=== PATIENT | female | born 1955 | race Two or more races ===

== ENCOUNTER 2017-02-25 11:08 | Emergency (ER) | payer MEDICARE, MEDICAID ==
[~2017-02-25] VITALS: Ht 162.6 cm; Wt 90.4 kg
[2017-02-25] MEDS ORDERED: FAMOTIDINE 20 MG TABLET PO ONE (12:00)
[2017-02-25] MEDS ORDERED: DIPHENHYDRAMINE 50 MG/ML, 1ML IM ONE ×2 (12:00→13:00)
[2017-02-25] MEDS ORDERED: DIPHENHYDRAMINE 50 MG/ML, 1ML ONE (12:45)
[2017-02-25] MEDS ORDERED: FAMOTIDINE 20 MG TABLET ONE (12:46)
[2017-02-25] MEDS ORDERED: ATOR80TA75 PO (13:06)
[2017-02-25] MEDS ORDERED: FLUO20TA25 PO (13:06)
[2017-02-25] MEDS ORDERED: ASPI-496 PO (13:06)
[2017-02-25] MEDS ORDERED: QUIN40TA7 PO (13:06)
[2017-02-25] MEDS ORDERED: INSU100I17 SQ (13:06)
[2017-02-25 14:15] VITALS: BP 135/70
== END 2017-02-25 14:21 | disposition home or self-care (01) ==
LOC: ED 12:11
DX: T78.1XXA Other adverse food reactions, not elsewhere classified, initial encounter (principal); X58.XXXA Exposure to other specified factors, initial encounter
CPT/HCPCS: 96372; 99283; J1200; J7512

== ENCOUNTER 2019-12-13 10:45 | Inpatient (IN) | payer MEDICARE, MEDICAID ==
[~2019-12-13] VITALS: Ht 149.9 cm; Wt 92.1 kg
[~2019-12-13 10:45] MED LIST: ASPI-496 PO; ATOR-2 PO; FLUO20TA25 PO; INSU100I17 SQ; QUIN40TA15 PO
--- NOTE | 2019-12-13 11:16 | NUR ---
PT SPANSISH SPEAKING ONLY. TRANSLATION PROVIDED PER DAUGHTER PER PT PREFERENCE. PER DAUGHTER PT WITH SOB AND INCREASED SWELLING IN LE. PT SATING 88% ON RA IN TRIAGE, NOW 97 ON 1L. PT WITH NOTED SWELLING TO BLE 2+. PT DENIES CP, +SOB WITH EXCERTION, DAUGHTER REPORTS COUGH AT NIGHT, NO HOME O2 USE AT HOME. PT TO BP, CARD MONITOR, SPO2. ERMD IN TO EVAL PT
[2019-12-13] MEDS ORDERED: SODIUM CHLORIDE FLUSH 10ML SYR IVF ONE (11:30)
[2019-12-13 12:01] LABS: BASOPHILS # (AUTO) 0.03 x10^3/uL (0-0.1); BASOPHILS % (AUTO) 0 % (0-1); EOSINOPHILS # (AUTO) 0.18 x10^3/uL (0-0.4); EOSINOPHILS % (AUTO) 2 % (1-7); LYMPHOCYTES # (AUTO) 2.14 x10^3/uL (1-3.4); LYMPHOCYTES % (AUTO) 26 % (22-44); MD NO; MEAN CORPUSCULAR HEMOGLOBIN 28.5 pg (27.0-34.8); MEAN CORPUSCULAR HGB CONC 33.2 g/dL (32.4-35.8); MEAN CORPUSCULAR VOLUME 85.7 fL (80-100); MEAN PLATELET VOLUME 8.4 fL (7.4-10.4); MONOCYTES # (AUTO) 0.64 x10^3/uL (0.2-0.8); MONOCYTES % (AUTO) 8 % (2-9); NEUTROPHILS # (AUTO) 5.33 x10^3/uL (1.8-6.8); NEUTROPHILS % (AUTO) 64 % (42-75); PLATELET COUNT 297 x10^3/uL (130-400); RED BLOOD COUNT 4.28 x10^6/uL (3.82-5.3); RED CELL DISTRIBUTION WIDTH 13.5 % (9.6-15.2)
[2019-12-13 12:10] LABS: ALANINE AMINOTRANSFERASE 13 U/L (12-78); ALBUMIN 3.2 g/dL (3.4-5.0); ANION GAP 5 mmol/L (5-15); CALCIUM 8.9 mg/dL (8.5-10.1); CHLORIDE 111 mmol/L (98-107); CREATININE 0.98 mg/dL (0.55-1.02)
[2019-12-13 12:15] LABS: ALKALINE PHOSPHATASE 144 U/L (45-117); BILIRUBIN,TOTAL 0.6 mg/dL (0.2-1.0); TROPONIN I < 0.015 ng/mL (0.000-0.045)
--- NOTE | 2019-12-13 12:16 | NUR ---
Late Entry: Pt resting in gurney with warm blankets, NAD, even and unlabored respirations, call light within reach, daughter at bedside, WCTM.
[2019-12-13 13:31] LABS: MICROSCOPIC AUTO
[2019-12-13 13:33] LABS: CULTURE INDICATED? NO
--- NOTE | 2019-12-13 13:45 | NUR ---
Pt resting in gurney, daughter at bedside, lab at bs for blood draw, pt eyes closed with even and unlabored respirations, on monitor, NAD, denies additional needs at this time. WCTM
[2019-12-13] MEDS ORDERED: CEFTRIAXONE PMX 1GM/50ML 50 ML IVPB ONE (14:00)
[2019-12-13] MEDS ORDERED: AZITHROMYCIN 500 MG in SODIUM CHLORIDE 0.9% 250 ML IVPB ONE (14:00)
[2019-12-13] MEDS ORDERED: ACETAMINOPHEN 325 MG TABLET PO PRN (14:30)
[2019-12-13] MEDS ORDERED: FUROSEMIDE 40 MG/4 ML IV ONE (14:30)
[2019-12-13] MEDS ORDERED: TEMPLATE NON-FORMULARY MED. (Fluoxetine Hcl** 20 MG) PO PRN (14:30)
[2019-12-13] MEDS ORDERED: omeprazole (14:50)
[2019-12-13] MEDS ORDERED: propranolol (14:50)
[2019-12-13] MEDS ORDERED: lantus (14:50)
[2019-12-13] MEDS ORDERED: amlodipine (14:50)
[2019-12-13] MEDS ORDERED: bupropion (14:50)
[2019-12-13] MEDS ORDERED: metformin (14:50)
[2019-12-13 15:45] VITALS: BP 167/88
[2019-12-13] MEDS ORDERED: INSULIN HUMULIN 70/30, 3ML PEN SQ-INSULIN SCH (16:00)
[2019-12-13] MEDS: INSULIN LISPRO 100 UNITS/ML, PEN SQ-INSULIN SCH ×2 (16:00→23:11)
[2019-12-13] MEDS: ENOXAPARIN 40 MG/0.4 ML SQ SCH (16:58)
[2019-12-13 17:45] VITALS: BP 167/88
[2019-12-13] MEDS: CEFTRIAXONE PMX 2GM/50ML 50 ML IV SCH (18:48)
[2019-12-13] MEDS: AZITHROMYCIN 500 MG TABLET PO SCH (18:48)
[2019-12-13] MEDS ORDERED: INSULIN GLARGINE 100 UNITS/ML, PEN SQ-INSULIN SCH (21:00)
[2019-12-13 21:55] VITALS: BP_SYST 150; BP_SYST 162; BP_DIAS 65; BP_DIAS 82
[2019-12-13] MEDS: ATORVASTATIN 20 MG TABLET PO SCH (23:11)
[2019-12-13] MEDS: ASPIRIN 81 MG TABLET EC PO SCH (23:11)
[2019-12-13] MEDS: QUINAPRIL 20MG TABLET PO SCH (23:11)
[2019-12-14 03:30] VITALS: BP 164/85
[2019-12-14 05:51] LABS: BASOPHILS # (AUTO) 0.03 x10^3/uL (0-0.1); BASOPHILS % (AUTO) 0 % (0-1); EOSINOPHILS # (AUTO) 0.14 x10^3/uL (0-0.4); EOSINOPHILS % (AUTO) 2 % (1-7); LYMPHOCYTES # (AUTO) 1.78 x10^3/uL (1-3.4); LYMPHOCYTES % (AUTO) 23 % (22-44); MD NO; MEAN CORPUSCULAR HEMOGLOBIN 28.8 pg (27.0-34.8); MEAN CORPUSCULAR HGB CONC 33.4 g/dL (32.4-35.8); MEAN CORPUSCULAR VOLUME 86.1 fL (80-100); MEAN PLATELET VOLUME 8.6 fL (7.4-10.4); MONOCYTES # (AUTO) 0.58 x10^3/uL (0.2-0.8); MONOCYTES % (AUTO) 7 % (2-9); NEUTROPHILS # (AUTO) 5.32 x10^3/uL (1.8-6.8); NEUTROPHILS % (AUTO) 68 % (42-75); PLATELET COUNT 287 x10^3/uL (130-400); RED BLOOD COUNT 4.28 x10^6/uL (3.82-5.3); RED CELL DISTRIBUTION WIDTH 13.5 % (9.6-15.2)
[2019-12-14 06:00] LABS: ANION GAP 5 mmol/L (5-15); CALCIUM 8.8 mg/dL (8.5-10.1); CHLORIDE 107 mmol/L (98-107)
[2019-12-14 06:04] LABS: CHOL/HDL RATIO 3.2; CHOLESTEROL, TOTAL 108 mg/dL (140-239); CREATININE 0.84 mg/dL (0.55-1.02); HDL CHOL % 31 % (28-40); HDL CHOLESTEROL (DIRECT) 34 mg/dL (40-60); LDL CHOLESTEROL,CALCULATED 57 mg/dL (54-169); LDL/HDL RATIO 1.7 (0.5-3.0); TRIGLYCERIDES 83 mg/dL (50-200); VLDL CHOLESTEROL 17 mg/dL (0-25)
[2019-12-14] MEDS: INSULIN LISPRO 100 UNITS/ML, PEN SQ-INSULIN SCH ×4 (07:00→23:20)
[2019-12-14 08:04] VITALS: BP 160/77
[2019-12-14] MEDS ORDERED: FUROSEMIDE 40 MG/4 ML IV SCH (09:00)
[2019-12-14] MEDS ORDERED: AMLODIPINE 5 MG TABLET PO SCH (09:00)
[2019-12-14] MEDS: AMLODIPINE 10 MG TAB PO SCH (09:01)
[2019-12-14 14:00] VITALS: BP 170/80
[2019-12-14 17:05] VITALS: BP 170/80
[2019-12-14] MEDS: ENOXAPARIN 40 MG/0.4 ML SQ SCH (17:05)
[2019-12-14] MEDS: AZITHROMYCIN 500 MG TABLET PO SCH (17:05)
[2019-12-14] MEDS: CEFTRIAXONE PMX 2GM/50ML 50 ML IV SCH (20:03)
[2019-12-14 20:07] VITALS: BP 171/82
[2019-12-14] MEDS: ATORVASTATIN 20 MG TABLET PO SCH (22:47)
[2019-12-14] MEDS: QUINAPRIL 20MG TABLET PO SCH (22:47)
[2019-12-14] MEDS: ASPIRIN 81 MG TABLET EC PO SCH (22:47)
[2019-12-15 01:31] VITALS: BP 176/76
[2019-12-15] MEDS: INSULIN LISPRO 100 UNITS/ML, PEN SQ-INSULIN SCH ×4 (07:00→21:09)
[2019-12-15 07:43] LABS: BASOPHILS # (AUTO) 0.03 x10^3/uL (0-0.1); BASOPHILS % (AUTO) 0 % (0-1); EOSINOPHILS # (AUTO) 0.17 x10^3/uL (0-0.4); EOSINOPHILS % (AUTO) 2 % (1-7); LYMPHOCYTES # (AUTO) 1.62 x10^3/uL (1-3.4); LYMPHOCYTES % (AUTO) 20 % (22-44); MD NO; MEAN CORPUSCULAR HEMOGLOBIN 28.3 pg (27.0-34.8); MEAN CORPUSCULAR HGB CONC 32.8 g/dL (32.4-35.8); MEAN CORPUSCULAR VOLUME 86.3 fL (80-100); MONOCYTES # (AUTO) 0.64 x10^3/uL (0.2-0.8); MONOCYTES % (AUTO) 8 % (2-9); NEUTROPHILS # (AUTO) 5.58 x10^3/uL (1.8-6.8); NEUTROPHILS % (AUTO) 69 % (42-75); PLATELET COUNT 311 x10^3/uL (130-400); RED BLOOD COUNT 4.57 x10^6/uL (3.82-5.3); RED CELL DISTRIBUTION WIDTH 13.9 % (9.6-15.2)
[2019-12-15 07:45] LABS: ANION GAP 4 mmol/L (5-15); CHLORIDE 106 mmol/L (98-107); CREATININE 0.94 mg/dL (0.55-1.02)
[2019-12-15 08:00] VITALS: BP 161/86
[2019-12-15] MEDS: AMLODIPINE 10 MG TAB PO SCH (08:36)
[2019-12-15] MEDS: FUROSEMIDE 40 MG/4 ML IV SCH ×2 (08:36→20:32)
[2019-12-15 16:00] VITALS: BP 139/75
[2019-12-15] MEDS: ENOXAPARIN 40 MG/0.4 ML SQ SCH (16:33)
[2019-12-15] MEDS: AZITHROMYCIN 500 MG TABLET PO SCH (16:33)
[2019-12-15] MEDS: CEFTRIAXONE PMX 2GM/50ML 50 ML IV SCH (19:51)
[2019-12-15 20:21] VITALS: BP 148/83
[2019-12-15] MEDS: ASPIRIN 81 MG TABLET EC PO SCH (20:32)
[2019-12-15] MEDS: ATORVASTATIN 20 MG TABLET PO SCH (20:32)
[2019-12-15] MEDS: QUINAPRIL 20MG TABLET PO SCH (21:08)
[2019-12-16 02:16] VITALS: BP 146/76
[2019-12-16] MEDS: INSULIN LISPRO 100 UNITS/ML, PEN SQ-INSULIN SCH ×3 (07:00→17:17)
[2019-12-16 07:35] VITALS: BP 151/78
[2019-12-16] MEDS: AMLODIPINE 10 MG TAB PO SCH (09:15)
[2019-12-16] MEDS: FUROSEMIDE 40 MG/4 ML IV SCH (09:15)
[2019-12-16] MEDS ORDERED: CEFD300C37 PO (12:58)
[2019-12-16] MEDS ORDERED: AMLO10TA8 PO (12:58)
[2019-12-16] MEDS ORDERED: CARV6.2512 PO (12:58)
[2019-12-16] MEDS ORDERED: AZIT500T10 PO (12:58)
[2019-12-16] MEDS ORDERED: FURO-92 PO (12:58)
[2019-12-16 13:17] VITALS: BP 132/79
[2019-12-16] MEDS ORDERED: MAGNESIUM HYDROXIDE 8%, 30ML UDC PO PRN (14:00)
[2019-12-16] MEDS: ENOXAPARIN 40 MG/0.4 ML SQ SCH (16:00)
[2019-12-16] MEDS: AZITHROMYCIN 500 MG TABLET PO SCH (17:17)
[2019-12-16] MEDS ORDERED: CARVEDILOL 6.25 MG TABLET PO SCH (18:00)
== END 2019-12-16 18:10 | disposition home or self-care (01) | DRG 291 ==
LOC: ED 11:11 → EDIP 14:14 → 3E 15:26 → 5SO 12-15 18:36
PROVIDERS: ADMIT Internal Medicine Infectious Disease; ATTEND Internal Medicine Infectious Disease
DX: I11.0 Hypertensive heart disease with heart failure (principal); I50.31 Acute diastolic (congestive) heart failure; R09.02 Hypoxemia; E11.319 Type 2 diabetes mellitus with unspecified diabetic retinopathy without macular edema; E78.5 Hyperlipidemia, unspecified; H54.7 Unspecified visual loss; E11.39 Type 2 diabetes mellitus with other diabetic ophthalmic complication; Z79.4 Long term (current) use of insulin; Z83.3 Family history of diabetes mellitus; Z87.442 Personal history of urinary calculi; Z20.828 Contact with and (suspected) exposure to other viral communicable diseases
CPT/HCPCS: 36415; 71045; 80048; 80053; 80061; 81001; 82962; 83036; 83605; 83880; 84145; 84484; 85025; 87040; 93005; 93306; 96374; 96375; 99285; G0378; J0696; J1650; J1940; J1815

== ENCOUNTER 2020-04-25 08:24 | Outpatient (CLI) | payer MEDICARE, MEDICAID ==
[~2020-04-25 08:24] MED LIST changes: +AMLO10TA8 PO; +AZIT500T10 PO; +CARV6.2512 PO; +CEFD300C37 PO; +FURO-92 PO; +REGADENOSON 0.4 MG/5 ML SYRINGE ONE; +amlodipine; +bupropion; +lantus; +metformin; +omeprazole; +propranolol
== END 2020-04-25 23:59 | disposition home or self-care (01) ==
LOC: CFH 08:24
PROVIDERS: ATTEND Physician Assistant Medical
DX: I11.0 Hypertensive heart disease with heart failure (principal); I50.32 Chronic diastolic (congestive) heart failure
CPT/HCPCS: 78452; 93017; A9502; J2785